=== PATIENT | female | born 1950 | race Caucasian/White ===

== ENCOUNTER 2016-09-02 23:18 | Inpatient (IN) | payer OTHER, MEDICARE ==
[~2016-09-02] VITALS: Ht 160 cm; Wt 80.8 kg
--- NOTE | ~2016-09-02 | HP ---
ADMIT: 09/03/2016 RM/LOC: 430 [facility] MR#: [id number] [address] [facility] [address] [place], [place] [address] VICKI DAUGHERTY [address] [facility] [address] [place] [id number] History and Physical SEX: F AGE: 66 : 1950 DATE OF SERVICE: 09/03/2016 CHIEF COMPLAINT: Weakness, chest burning, and dizziness. HISTORY OF PRESENT ILLNESS: Ms. Daugherty is a very pleasant, 66-year-old female. She has past medical history significant for recent admission for total knee arthroplasty. She reports after being discharged home, she actually was doing quite well, notes that then she started having just yesterday, some burning in her chest, occasional chest tightness, and dizziness. She reports it is kind of hard to describe, notes that she also had a headache. She just felt terrible. She was brought into the ER and found to be profoundly bradycardic. There was some confusion. She reports she has continued taking her medications but then apparently her family had reported that there were some recent medication changes and she was confused, so she has stopped taking all of her medications. Note, her Synthroid dose is 175 mcg. When she came in her TSH was 116. She reports she has not missed any doses though of her Synthroid. Otherwise, she was noted to be bradycardic and felt warranted admission for further evaluation and treatment. PAST MEDICAL HISTORY: 1. Significant for some questionable adrenal insufficiency. She has been on and off hormones at times. 2. Depression. 3. Dysesthesia. 4. Hyperglycemia. 5. Hypertension. 6. Hypothyroidism. 7. Chronic insomnia. 8. Menopause. 9. Neuropathy. 10.Osteoarthritis of the knees bilaterally. 11.Vitamin D deficiency. 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 MEDICATIONS: Currently are: 1. MiraLAX. 2. Tylenol. 3. Xanax 0.25 p.o. t.i.d. p.r.n. 4. Aspirin 325 p.o. daily. 5. Refresh tears. 6. Celexa 40 mg p.o. daily. 7. Synthroid 175 mcg p.o. daily. 8. Aleve 220 p.o. b.i.d. p.r.n. 9. Omeprazole 20 mg p.o. b.i.d. 10.Oxycodone 5, 1-2 p.o. q.6 hours p.r.n. 11.Requip 0.5, 1-2 p.o. daily p.r.n. 12.Senokot p.o. b.i.d. p.r.n. 13.Tizanidine 4 mg p.o. q.8 hours p.r.n. 14.Tramadol 50 mg 1-2 p.o. q.4-6 hours p.r.n. ADMIT: 09/03/2016 RM/LOC: 430 [facility] MR#: [id number] [address] [address] [facility]I [address] [facility] [address] [place] [address] History and Physical SEX: F AGE: 66 : 1950 ALLERGIES: PENICILLIN. FAMILY HISTORY: Relatively noncontributory at this point. SOCIAL HISTORY: She does not smoke or use any significant alcohol. REVIEW OF SYSTEMS: Obtained, was otherwise essentially negative. PHYSICAL EXAMINATION: GENERAL: She is alert and oriented. She is really in no apparent distress. HEENT: Pupils are equal, round and reactive. Oropharynx has dry mucous membranes. NECK: Supple. HEART: Normal rate with regular rhythm. LUNGS: Clear to auscultation. HEART: Bradycardic. ABDOMEN: Soft. EXTREMITIES: No evidence of edema. Her right knee appears to be healing. ASSESSMENT AND PLAN: 1. Chest pain or chest burning. 2. Recent total knee arthroplasty. We will go ahead and set her up for CTA with her recent total knee arthroplasty. 3. Bradycardia, likely suspect it is secondary to her profound hypothyroidism. We will go and replace. 4. History of adrenal insufficiency. With her adrenal insufficiency, we will go ahead and put her on some steroids with the replacement of her thyroid hormone. 5. Hypomagnesemia. We will go ahead and replace. 6. Hypertension. 7. Insomnia. Otherwise, we will monitor her on tele. Ness Lipscomb MD/ radha JOB #: [id number] CC: Ness Lipscomb, Attending Physician Ness Lipscomb, Family Physician
[~2016-09-02 23:18] MED LIST: ARTIFICIAL TEAR15 M2 OU; ASA325 MG PO; CEFTIN500 MG PO; CELEXA40 MG PO; CORTEF20 MG PO; MIRALAX PACKET17 GM PO; NEURONTIN100 MG PO; OXY IR DPS5 MG PO; PRILOSEC20 MG PO; REQUIP0.5 MG PO; SENOKOT S1 TAB PO; SYNTHROID175 MCG PO; TYLENOL DPS325 MG PO; ULTRAM DPS50 MG PO
--- NOTE | 2016-09-03 19:16 | ER ---
ADMIT: 09/03/2016 RM/LOC: 430 [facility] MR#: [id number] [address] [place], [place] [address] VICKI GOODWIN [address] [place] [id number] Emergency Room Report SEX: F AGE: 66 : 1950 DATE: 09/02/2016 CHIEF COMPLAINT: Delirium. HISTORY OF PRESENT ILLNESS: The patient is a 66-year-old female, arrived by private auto, complaining of substernal chest burning, tingling, discomfort, without shortness of breath, nausea, or diaphoresis shortly after taking 2 tramadol and tizanidine. The patient is status post recent right total knee arthroplasty, convalescing at home. Denies any nausea, vomiting, diarrhea, or prior difficulty with tramadol and tizanidine. PAST MEDICAL HISTORY: ALLERGIES: PENICILLIN. MEDICATIONS: Please see nurse's MAR. ILLNESSES: Type 2 diabetes, hypertension, GI bleed, hypothyroidism, depression, DJD, degenerative disk disease, migraine headaches, alleged adrenal insufficiency, but no medications for adrenal insufficiency. OPERATIONS: Hysterectomy, bilateral total knee arthroplasties, left ankle fracture, ORIF, De Quervain's release, lumbar laminectomy, carpal tunnel release. SOCIAL HISTORY: Nonsmoker, nondrinker, no illicit drugs. PHYSICAL EXAMINATION: VITAL SIGNS: Temp 96.6, pulse 46, respirations 16, BP 115/56, SaO2 of 95% on room air. GENERAL: Nontoxic, non-diaphoretic without jaundice or icterus. HEENT: Normocephalic. No evidence of epistaxis, rhinorrhea, or otorrhea. NECK: Supple without lymphadenopathy or thyromegaly. CHEST: Breath sounds equal, diminished, without rales, rhonchi, or wheeze. HEART: Bradycardic without murmur, gallop, or edema. ABDOMEN: Soft, nontender, nondistended without mass or megaly. Bowel sounds hypoactive. EXTREMITIES: No evidence of Homans sign, synovitis, or dermatitis. Right knee incision healing well. MEDICAL DECISION MAKING: The patient's vital signs and complaint does not support pulmonary emboli, even though she is slightly over 3 weeks status post right knee arthroplasty. The patient was given IV fluid bolus, remained hypotensive, no discomfort abated. Hemoglobin 10.8, glucose 161, magnesium 1.7. Alcohol 7, free T4 of 0.47. TSH 116. Salicylate less than 1.7. Acetaminophen less than 2. Tox screen negative. UA negative. Discussed findings with Dr. Lipscomb, who agreed and gave orders to nursing staff. ADMIT: 09/03/2016 RM/LOC: 430 [facility] MR#: [id number] [address] [address] [place] [id number] Emergency Room Report SEX: F AGE: 66 : 1950 DIAGNOSES: 1. Delirium due to tizanidine and tramadol. 2. Hypothyroidism. 3. Bradycardia. RECOMMENDATION: Admit inpatient telemetry for Dr. Lipscomb. ADMISSION/DISCHARGE CONDITION: Stable. Patient is a full code. Kd Evans MD/ radha JOB #: [id number] CC: Ness Lipscomb MD, Attending Physician Ness Lipscomb MD, Family Physician Lorri Hayes APRN
[2016-09-05] MEDS ORDERED: NEURONTIN DPS100 MG PO (18:10)
[2016-09-05] MEDS ORDERED: ZESTRIL DPS20 MG PO (18:10)
[2016-09-05] MEDS ORDERED: ASA325 MG PO (18:12)
[2016-09-05] MEDS ORDERED: LACRI-LUBE3.5 GM OU (18:13)
--- NOTE | 2016-09-20 09:36 | DS ---
ADMIT: 09/03/2016 RM/LOC: 430 [facility] MR#: [id number] [address] [facility] [address] [place], [place] [address] VICKI GOODWIN [address] [place] [id number] Discharge Summary SEX: F AGE: 66 : 1950 ADMISSION DATE: 09/03/2016 DISCHARGE DATE: 09/04/2016 DISCHARGE DIAGNOSES: 1. Weakness. 2. Profound hypothyroidism. 3. Bradycardia. 4. EKG (electrocardiogram) changes suggestive of hypothyroidism. 5. Probable adrenal insufficiency. 6. Recent right total knee arthroplasty. 7. Hypomagnesemia. 8. Hypertension. 9. Insomnia. HOSPITAL COURSE: The patient was admitted after some chest burning type symptoms. She had serial cardiac enzymes and EKGs which the cardiac enzymes were negative. She did have a CTA of her chest which was negative for PE or pericardial effusion. She was noted to have a TSH above 100 and had EKG changes suggestive of hypothyroidism. Her beta luci was held with her bradycardia and she was given some hydrocortisone for the replacement of her profound hypothyroidism also. She was given several doses of her Synthroid and was having some improvement of her symptoms. Her TSH at the time of discharge was pending. However, she was feeling better and it was felt she was safe to be discharged home. I do feel that somehow there was a confusion and she just was not taking her Synthroid medication, although she was really thought that she was. DISCHARGE MEDICATIONS: 1. Celexa 40 mg p.o. daily. 2. Synthroid 175 mcg p.o. daily. 3. Lisinopril 20 mg p.o. b.i.d. 4. Omeprazole 20 mg p.o. b.i.d. 5. Gabapentin 100 mg p.o. b.i.d. 6. Tramadol p.r.n. 7. Requip p.r.n. 8. Aspirin 325 p.o. daily. 9. Hydrocortisone 10 mg p.o. q.a.m. 10.She is to stop her tizanidine, stop her Coreg. FOLLOWUP: Follow up with Lorri Hayes in 7-10 days. Ness Lipscomb MD/ jorge alberto JOB #: [id number] CC: Ness Lipscomb MD, Attending Physician Ness Lipscomb MD, Family Physician
== END 2016-09-04 16:10 | disposition home or self-care (01) | DRG 644 ==
LOC: ER 23:18 → 4PCU 09-03 01:30
PROVIDERS: ADMIT Internal Medicine
DX: E03.9 Hypothyroidism, unspecified (principal); E27.40 Unspecified adrenocortical insufficiency; E11.40 Type 2 diabetes mellitus with diabetic neuropathy, unspecified; R00.1 Bradycardia, unspecified; I10 Essential (primary) hypertension; R41.0 Disorientation, unspecified; R07.9 Chest pain, unspecified; E83.42 Hypomagnesemia; F32.9 Major depressive disorder, single episode, unspecified; M19.90 Unspecified osteoarthritis, unspecified site; G43.909 Migraine, unspecified, not intractable, without status migrainosus; F51.04 Psychophysiologic insomnia; Z79.82 Long term (current) use of aspirin; Z96.653 Presence of artificial knee joint, bilateral; Z98.890 Other specified postprocedural states; Z91.138 Patient's unintentional underdosing of medication regimen for other reason